=== PATIENT | male | born 1975 | race Caucasian/White ===

== ENCOUNTER 2017-12-12 10:59 | Emergency (ER) | payer OTHER ==
[2017-12-12 11:04] VITALS: BP 144/88; PULSE 75; TEMP 98; BMI 23.7
[2017-12-12] MEDS ORDERED: IBUPROFEN 600 MG TABLET (FP) PO ONE ×2 (11:58→12:05)
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
== END 2017-12-12 12:07 | disposition home or self-care (01) ==
LOC: JERFT 10:59
DX: S13.4XXA Sprain of ligaments of cervical spine, initial encounter (principal); V43.51XA Car driver injured in collision with sport utility vehicle in traffic accident, initial encounter; Y92.414 Local residential or business street as the place of occurrence of the external cause; Y93.89 Activity, other specified; Y99.8 Other external cause status
CPT/HCPCS: 99281-25

== ENCOUNTER 2018-07-29 12:59 | Inpatient (IN) | payer OTHER ==
--- NOTE | 2018-07-29 13:18 | PDOC ---
History of Present Illness - General Chief Complaint: Pain Stated Complaint: KNEE SWELLING Time Seen by Provider: 07/29/18 13:18 History Source: Patient - History of Present Illness Initial Comments: 07/29/18 13:37 43 year old male with right knee effusion two months ago reports that he had swelling and pain after a plasma injection at the site. patient had knee swelling after the injection, fluid was drained by his pain management doctor. patient now reports right knee pain and swelling with unable to weight bear with limited rom. patient reports fever/ chills at home. denies NVD, abdominal pain, chest pain Past History - Past Medical History Allergies/Adverse Reactions: Allergies Allergy/AdvReac Type Severity Reaction Status Date / Time Penicillins Allergy Rash Verified 07/29/18 13:12 Home Medications: Ambulatory Orders NK [No Known Home Medication] 02/12/18 COPD: No Other medical history: DENIES. - Surgical History Abdominal Surgery: Yes (umb. hernia repair) - Suicide/Smoking/Psychosocial Hx Smoking Status: No Smoking History: Never smoked Number of Cigarettes Smoked Daily: 0 Cigars Per Day: 0 Hx Alcohol Use: No Drug/Substance Use Hx: No Substance Use Type: None *Physical Exam - Vital Signs Last Vital Signs Temp Pulse Resp BP Pulse Ox 99.7 F H 103 H 18 113/80 98 07/29/18 13:12 07/29/18 13:12 07/29/18 13:12 07/29/18 13:12 07/29/18 13:12 - Physical Exam General Appearance: Yes: Appropriately Dressed Gastrointestinal/Abdominal: positive: Normal Bowel Sounds Musculoskeletal: positive: Normal Inspection, Decreased Range of Motion, Other ( right knee warm to touch, limited rom) Extremity: positive: Normal Capillary Refill, Normal Inspection, Normal Range of Motion Integumentary: positive: Normal Color, Dry, Warm Neurologic: positive: Fully Oriented, Alert, Normal Mood/Affect Moderate Sedation - Procedure Monitoring Vital Signs: Procedure Monitoring Vital Signs Temperature 99.7 F H 07/29/18 13:12 Pulse Rate 103 H 07/29/18 13:12 Respiratory Rate 18 07/29/18 13:12 Blood Pressure 113/80 07/29/18 13:12 O2 Sat by Pulse Oximetry (%) 98 07/29/18 13:12 ED Treatment Course - LABORATORY CBC & Chemistry Diagram: 07/29/18 14:05 07/29/18 14:05 Medical Decision Making - Medical Decision Making 07/29/18 13:42 right knee pain and swelling concerning for septic joint. patient signed out to Dr. Gonzalez. patient to the main ER for further management of care. *DC/Admit/Observation/Transfer Diagnosis at time of Disposition: Right knee pain Qualifiers: Chronicity: acute Qualified Code(s): M25.561 - Pain in right knee - Referrals - Patient Instructions - Post Discharge Activity
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
[2018-07-29] MEDS ORDERED: KETOROLAC TROMETHAMINE 30 MG/1 ML VIAL ONE (14:34)
[2018-07-29 14:39] LABS: BASO % 0.5 % (0-2.0); EOS % 0.2 % (0-4.5); HEMATOCRIT 43.8 % (35.4-49); HEMOGLOBIN 15.1 GM/dL (11.7-16.9); LYMPH % 11.3 % (8-40); MCHC 34.5 g/dl (32.0-35.9); MEAN PLT VOLUME 9.4 fl (7.5-11.1); MONO % 8.4 % (3.8-10.2); NEUT % 79.6 % (42.8-82.8); PLATELET COUNT 225 K/MM3 (134-434); RBC 5.04 M/mm3 (4.00-5.60); RDW 13.1 % (11.9-15.9)
[2018-07-29 14:53] LABS: INR 1.36 (0.83-1.09); PROTHROMBIN TIME (PATIENT) 16.1 SEC (9.7-13.0)
[2018-07-29 14:56] LABS: ACTIVATED PTT 26.9 SECONDS (25.2-36.5)
[2018-07-29 15:01] LABS: ALBUMIN 4.2 g/dl (3.4-5.0); ALK PHOS 97 U/L (45-117); ANION GAP 7 MMOL/L (8-16); BILIRUBIN,TOTAL 1.4 mg/dL (0.2-1); BLOOD UREA NITROGEN 11 mg/dL (7-18); CALCIUM 9.4 mg/dL (8.5-10.1); CHLORIDE 103 mmol/L (98-107); CO2 30 mmol/L (21-32); CREATININE 1.1 mg/dL (0.55-1.3); GLUCOSE,RANDOM 95 mg/dL (74-106); POTASSIUM 3.8 mmol/L (3.5-5.1); SGOT/AST 17 U/L (15-37); SGPT/ALT 32 U/L (13-61); SODIUM 140 mmol/L (136-145)
[2018-07-29] MEDS ORDERED: KETOROLAC TROMETHAMINE 30 MG/1 ML VIAL IVPUSH ONE (15:28)
[2018-07-29] MEDS ORDERED: SODIUM CHLORIDE 1,000 ML IV STA ×2 (15:28→17:48)
[2018-07-29 17:01] LABS: SYNOVIAL FLUID RBC 2509 /mm3; SYNOVIAL FLUID SOURCE SYNOVIAL FLUID
[2018-07-29 17:44] LABS: SYNOVIAL FLUID LYMPHOCYTES 12 %; SYNOVIAL FLUID MONOCYTES 14 %; SYNOVIAL FLUID NEUTROPHILS 71 %
[2018-07-29] MEDS ORDERED: VANCOMYCIN 1,000 MG in DEXTROSE 5%-WATER - 250 ML IVPB ONE (17:48)
[2018-07-29] MEDS ORDERED: CEFTRIAXONE 2,000 MG in DEXTROSE 5%-WATER - 50 ML IVPB ONE (17:48)
--- NOTE | 2018-07-29 18:17 | PN ---
Teaching Attending Note Name of Resident: Sofia Sky ATTENDING PHYSICIAN STATEMENT I saw and evaluated the patient. I reviewed the resident's note and discussed the case with the resident. I agree with the resident's findings and plan as documented. SUBJECTIVE: CC: pain , swelling and subjective fevers HPI: 43 y/o gentleman with no significant PMH, but has a h/o R knee injury who presented with pain, swelling and subjective fevers. He had R knee injury 6 months ago, for which he had MRI and was told there was no Fx or ligaments injury. splinting was placed at that time.2 months ago, he had platelet rich plasma injection in his knee , 2 days after which , he developed swelling, diaphoresis, pain and chills. at that time, he had a knee tap and sx got better . 2 days ago, he noticed pain , swelling , and diaphoresis with chills, and became unable to ambulate . this am he had subjective fevers. In ER, he had arhtrocentesis and xray . OBJECTIVE: NAD, awake, alert and oriented. comfortable HEENT: MMM, no facial droop. CV: RRR, no MRG Lungs: CTAB ext : ( after paracentesis ) R knee with slight increase circumference, slight increased warmth, no erythema, slight restriction of R knee flexion ( 80 degrees ) . no effusion detected. no effusion or erythema on L knee. no edema or erythema on legs or thighs DP 2+ b/l Abd:soft, NT, ND , NL BS Neuro: , round equal pupils, No facial droop, tongue at mid line, strength 5/5 in upper extremities and LLE proximally and distally. R LE strength was not tested . sensation to light touch NL . ASSESSMENT AND PLAN: 43 y/o gentleman with no significant PMH, but has a h/o R knee injury who presented with pain, swelling and subjective fevers. 1- R knee pain and swelling: depending on exam findings and synovial fluid analysis, septic arthritis is unlikely and the likely diagnosis is inflammatory arthritis. patient had chills, and elevated WBC and CRP, so infection can't be r /o completely. - I am not sure if Abx need to be given , will ask ID to help - consult ortho. case was d/w him by ER staff ( po abx were recommended ) - follow gram stain, and fluid cx - tylenol for pain - repeat lactic and CBC
[2018-07-29] MEDS ORDERED: VANCOMYCIN 1 GRAM (PRE-DOCKED) 1,000 MG/250 ML BAG IVPB ONE (18:28)
[2018-07-29] MEDS ORDERED: CEFTRIAXONE 2 GM/100 ML BAG IVPB ONE (18:28)
[2018-07-29] MEDS ORDERED: ACETAMINOPHEN 325 MG TABLET (FP) PO PRN (18:58)
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
[2018-07-29] MEDS: HEPARIN NA (PORCINE) 5,000 UNITS/ML 1ML VIAL SQ SCH (21:44)
[2018-07-29 23:24] VITALS: BMI 23.8
[2018-07-30] MEDS: HEPARIN NA (PORCINE) 5,000 UNITS/ML 1ML VIAL SQ SCH ×3 (06:09→21:08)
[2018-07-30] MEDS ORDERED: VANCOMYCIN 1,250 MG in DEXTROSE 5%-WATER - 250 ML IVPB SCH (08:00)
[2018-07-30 09:07] LABS: BASO % 0.5 % (0-2.0); EOS % 0.8 % (0-4.5); HEMATOCRIT 37.3 % (35.4-49); MCH 30.3 pg (25.7-33.7); MEAN CELL VOLUME 86.8 fl (80-96); MEAN PLT VOLUME 9.1 fl (7.5-11.1); MONO % 8.1 % (3.8-10.2); NEUT % 71.6 % (42.8-82.8); PLATELET COUNT 171 K/MM3 (134-434); RDW 13.1 % (11.9-15.9)
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
[2018-07-30 09:44] LABS: ALK PHOS 74 U/L (45-117); ANION GAP 7 MMOL/L (8-16); BILIRUBIN,TOTAL 1.3 mg/dL (0.2-1); BLOOD UREA NITROGEN 12 mg/dL (7-18); CALCIUM 8.1 mg/dL (8.5-10.1); CHLORIDE 106 mmol/L (98-107); CO2 28 mmol/L (21-32); GLUCOSE,RANDOM 124 mg/dL (74-106); SGOT/AST 18 U/L (15-37); SGPT/ALT 27 U/L (13-61); SODIUM 141 mmol/L (136-145); TOT PROT 6.1 g/dl (6.4-8.2)
[2018-07-30] MEDS ORDERED: CEFTRIAXONE 2 GM in DEXTROSE 5%-WATER 100 ML IVPB SCH ×2 (10:00→18:00)
[2018-07-30 10:54] LABS: CRYSTALS,SYNOVIAL FLUID NEGATIVE
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
[2018-07-30] MEDS ORDERED: DEXTROSE 5%-WATER 100 ML IVPB ONE (16:16)
[2018-07-30] MEDS ORDERED: VANCOMYCIN 1 GRAM (PRE-DOCKED) 1,000 MG/250 ML BAG IVPB SCH (18:00)
[2018-07-30] MEDS: VANCOMYCIN 1,250 MG in DEXTROSE 5%-WATER - 250 ML IVPB SCH (21:07)
[2018-07-31] MEDS: HEPARIN NA (PORCINE) 5,000 UNITS/ML 1ML VIAL SQ SCH ×2 (06:24→14:07)
[2018-07-31 08:20] VITALS: BP 119/79; PULSE 61; TEMP 98.4
[2018-07-31] MEDS: VANCOMYCIN 1,250 MG in DEXTROSE 5%-WATER - 250 ML IVPB SCH (08:30)
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
--- NOTE | 2018-07-31 12:12 | PN ---
Progress Note (short form) - Note Progress Note: doing well no complaints Vital Signs Period Temp Pulse Resp BP Sys/Neil Pulse Ox Last 24 Hr 97.7 F-98.4 F 53-70 18-20 97-119/56-79 99-99 cor-rrr lungs clear abd soft,nt ext minimal swelling left knee CBC, BMP 07/30/18 09:00 07/30/18 09:00 Microbiology 07/29/18 15:33 Synovial Fluid - Knee Gram Stain - Final 07/29/18 15:33 Synovial Fluid - Knee Body Fluid Culture - Final NO GROWTH OF AEROBIC ORGANISMS AFTER 48 HOURS INCUBATION 07/29/18 15:33 Synovial Fluid - Knee Anaerobic Culture - Final NO ANAEROBES WERE ISOLATED 07/29/18 14:30 Blood - Peripheral Venous Blood Culture - Preliminary NO GROWTH OBTAINED AFTER 24 HOURS, INCUBATION TO CONTINUE FOR 4 DAYS. 07/29/18 14:31 Blood - Peripheral Venous Blood Culture - Preliminary NO GROWTH OBTAINED AFTER 24 HOURS, INCUBATION TO CONTINUE FOR 4 DAYS. 07/29/18 14:38 Synovial Fluid - Knee Gram Stain - Final a/p unlikely septic arthritis spoke to lab cultures negative will d/c vancomycin have asked lab to hold culture 2 weeks and have sent afb and fungal cultures from the arthrocentesis (lab had fluid) if lyme serology is not back this am I suggest we d/c him home off antibiotics with outpt f/u with his PMD and with ORTHO Problem List - Problems (1) Effusion, right knee Code(s): M25.461 - EFFUSION, RIGHT KNEE (2) Right knee pain Code(s): M25.561 - PAIN IN RIGHT KNEE Qualifiers: Chronicity: acute Qualified Code(s): M25.561 - Pain in right knee
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
[2018-08-02 15:29] LABS: IgG Ab 23 kDa Band Absent (.); IgG Ab 28 kDa Band Present (.)
== END 2018-07-31 14:49 | disposition home or self-care (01) | DRG 566 ==
LOC: JER 12:59 → JERBED 18:25 → J6S 20:05
PROVIDERS: ADMIT Internal Medicine; ATTEND Internal Medicine
DX: M25.461 Effusion, right knee (principal); M25.561 Pain in right knee
CPT/HCPCS: 36415; 73562-TC-RT-FY; 80053; 83605; 85025; 85610; 85651; 85730; 86140; 86618; 86850; 86900; 86901; 87040; 87070; 87075; 87102; 87116; 87205; 87206; 87210; 87476; 87491; 87591; 89051; 89060; 99284-25; J7030

== ENCOUNTER 2019-04-30 13:36 | Emergency (ER) | payer OTHER | END 2019-04-30 19:47 | LOC: JER 13:36 ==